=== PATIENT | male | born 1960 | race Caucasian/White ===

== ENCOUNTER 2020-02-04 07:48 | Day surgery (SDC) | payer BC ==
[2020-02-04 09:19] LABS: BASO % 0.6 % (0-2.0); EOS % 3.5 % (0-4.5); HEMATOCRIT 37.8 % (35.4-49); HEMOGLOBIN 12.3 GM/dL (11.7-16.9); LYMPH % 19.1 % (8-40); MCH 27.5 pg (25.7-33.7); MCHC 32.7 g/dl (32.0-35.9); MEAN PLT VOLUME 7.2 fl (7.5-11.1); MONO % 5.3 % (3.8-10.2); NEUT % 71.5 % (42.8-82.8); PLATELET COUNT 312 K/MM3 (134-434); RDW 17.3 % (11.9-15.9); WHITE BLOOD COUNT 11.6 K/mm3 (4.0-10.0)
[2020-02-04 09:55] LABS: POTASSIUM 4.4 mmol/L (3.5-5.1)
[2020-02-04 09:58] LABS: ALBUMIN 2.7 g/dl (3.4-5.0); BLOOD UREA NITROGEN 18.6 mg/dL (7-18)
[2020-02-04 10:02] LABS: BILIRUBIN,TOTAL 0.4 mg/dL (0.2-1); CREATININE 0.7 mg/dL (0.55-1.3)
[2020-02-04 10:03] LABS: TOT PROT 7.4 g/dl (6.4-8.2)
[2020-02-04] MEDS ORDERED: ACETAMINOPHEN 500 MG TABLET (FP) PO ONE (10:30)
[2020-02-04] MEDS ORDERED: diphenhydrAMINE HCL 25 MG CAPSULE (FP) PO ONE (10:30)
[2020-02-04] MEDS ORDERED: methylPREDNISolone NA SUCC 125 MG/2 ML VIAL IVPUSH ONE (10:30)
[2020-02-04] MEDS ORDERED: RITUXIMAB-ABBS 1,000 MG in DEXTROSE 5%-WATER - 400 ML IVPB ONE (11:00)
[2020-02-04 17:10] VITALS: BP 121/76; PULSE 71
[2020-02-04 17:11] VITALS: TEMP 97.8
== END 2020-02-04 15:35 | disposition home or self-care (01) ==
LOC: JCHEMO 07:48
PROVIDERS: ATTEND Internal Medicine Rheumatology
DX: M05.79 Rheumatoid arthritis with rheumatoid factor of multiple sites without organ or systems involvement (principal)
CPT/HCPCS: 36415; 80053; 85025; 96365; 96367; 96375; 96413; 96415; Q5115

== ENCOUNTER 2020-02-18 07:48 | Day surgery (SDC) | payer BC ==
[2020-02-18] MEDS ORDERED: ACETAMINOPHEN 500 MG TABLET (FP) PO ONE (08:45)
[2020-02-18] MEDS ORDERED: RITUXIMAB-ABBS 1,000 MG in DEXTROSE 5%-WATER - 400 ML IVPB ONE (08:45)
[2020-02-18] MEDS ORDERED: methylPREDNISolone NA SUCC 125 MG/2 ML VIAL IVPUSH ONE (08:45)
[2020-02-18] MEDS ORDERED: diphenhydrAMINE HCL 25 MG CAPSULE (FP) PO ONE (08:45)
[2020-02-18 08:52] LABS: BASO % 0.4 % (0-2.0); EOS % 1.6 % (0-4.5); HEMATOCRIT 31.8 % (35.4-49); HEMOGLOBIN 10.1 GM/dL (11.7-16.9); LYMPH % 6.5 % (8-40); MCH 26.3 pg (25.7-33.7); MCHC 31.9 g/dl (32.0-35.9); MEAN CELL VOLUME 82.6 fl (80-96); MEAN PLT VOLUME 6.3 fl (7.5-11.1); MONO % 6.1 % (3.8-10.2); NEUT % 85.4 % (42.8-82.8); PLATELET COUNT 264 K/MM3 (134-434); RBC 3.85 M/mm3 (4.00-5.60); RDW 16.5 % (11.9-15.9)
[2020-02-18 09:17] LABS: POTASSIUM 4.1 mmol/L (3.5-5.1)
[2020-02-18 09:20] LABS: ALBUMIN 2.8 g/dl (3.4-5.0); CALCIUM 8.6 mg/dL (8.5-10.1)
[2020-02-18 09:23] LABS: CREATININE 0.8 mg/dL (0.55-1.3)
[2020-02-18 09:25] LABS: BILIRUBIN,TOTAL 0.3 mg/dL (0.2-1); TOT PROT 7.1 g/dl (6.4-8.2)
[2020-02-18 16:31] VITALS: TEMP 97.7
[2020-02-19 06:34] VITALS: BP 130/75; PULSE 72
== END 2020-02-18 16:15 | disposition home or self-care (01) ==
LOC: JCHEMO 07:48
PROVIDERS: ATTEND Internal Medicine Rheumatology
DX: M05.79 Rheumatoid arthritis with rheumatoid factor of multiple sites without organ or systems involvement (principal)
CPT/HCPCS: 36415; 80053; 85025; 96367; 96413; 96415; Q5115

== ENCOUNTER 2022-01-30 08:39 | Day surgery (SDC) | payer BC, OTHER ==
[2022-01-30] MEDS ORDERED: METHYLPREDNISOLONE NA SUCC 100 MG in SODIUM CHLORIDE 50 ML IVPB ONE (09:00)
[2022-01-30] MEDS ORDERED: ACETAMINOPHEN 500 MG TABLET (FP) PO ONE (09:00)
[2022-01-30] MEDS ORDERED: diphenhydrAMINE HCL 25 MG CAPSULE (FP) PO ONE (09:00)
[2022-01-30] MEDS ORDERED: RITUXIMAB-ABBS 1,000 MG in DEXTROSE 5%-WATER - 400 ML IVPB ONE (09:30)
[2022-01-30 16:08] VITALS: RESP 18
[2022-01-30 16:15] VITALS: BP 132/74; PULSE 66
[2022-01-30 16:16] VITALS: TEMP 97.7
== END 2022-01-30 16:18 | disposition home or self-care (01) ==
LOC: JCHEMO 08:39 → J7W 08:41 → JCHEMO 16:18
PROVIDERS: ATTEND Internal Medicine Rheumatology
DX: M06.9 Rheumatoid arthritis, unspecified (principal)
CPT/HCPCS: 96375; 96413; 96415; Q5115

== ENCOUNTER 2022-02-13 09:13 | Day surgery (SDC) | payer BC, OTHER ==
[2022-02-13] MEDS ORDERED: METHYLPREDNISOLONE NA SUCC 100 MG in SODIUM CHLORIDE 50 ML IVPB ONE (09:30)
[2022-02-13] MEDS ORDERED: ACETAMINOPHEN 500 MG TABLET (FP) PO ONE (09:30)
[2022-02-13] MEDS ORDERED: diphenhydrAMINE HCL 25 MG CAPSULE (FP) PO ONE (09:30)
[2022-02-13] MEDS ORDERED: RITUXIMAB-ABBS 1,000 MG in DEXTROSE 5%-WATER - 400 ML IVPB ONE (10:00)
[2022-02-13 17:05] VITALS: BP 112/69; PULSE 82; RESP 20; TEMP 98.4
== END 2022-02-13 15:45 | disposition home or self-care (01) ==
LOC: JCHEMO 09:13 → J7W 09:14 → JCHEMO 15:45
PROVIDERS: ATTEND Internal Medicine Rheumatology
DX: M05.9 Rheumatoid arthritis with rheumatoid factor, unspecified (principal)
CPT/HCPCS: 96367; 96413; 96415; Q5115

== ENCOUNTER 2022-08-14 08:36 | Day surgery (SDC) | payer BC, OTHER ==
[2022-08-14] MEDS ORDERED: METHYLPREDNISOLONE NA SUCC 100 MG in SODIUM CHLORIDE 50 ML IVPB ONE (08:45)
[2022-08-14] MEDS ORDERED: diphenhydrAMINE HCL 25 MG CAPSULE (FP) PO ONE (08:45)
[2022-08-14] MEDS ORDERED: ACETAMINOPHEN 500 MG TABLET (FP) PO ONE (08:45)
[2022-08-14] MEDS ORDERED: RITUXIMAB-ABBS 1,000 MG in DEXTROSE 5%-WATER - 400 ML IVPB ONE (09:15)
[2022-08-14 15:43] VITALS: RESP 20
[2022-08-14 15:44] VITALS: BP 113/67; PULSE 62; TEMP 98.1
== END 2022-08-14 14:40 | disposition home or self-care (01) ==
LOC: J7W 08:36 → JCHEMO 08:36
PROVIDERS: ATTEND Internal Medicine Rheumatology
PROC: 3E033GC Introduction of Other Therapeutic Substance into Peripheral Vein, Percutaneous Approach (ICD-10-PCS; principal; 2022-08-14)
DX: M06.9 Rheumatoid arthritis, unspecified (principal)
CPT/HCPCS: 96360; 96375; 96413; Q5115

== ENCOUNTER 2022-08-30 08:30 | Day surgery (SDC) | payer BC, OTHER ==
[2022-08-30] MEDS ORDERED: ACETAMINOPHEN 500 MG TABLET (FP) PO ONE (09:00)
[2022-08-30] MEDS ORDERED: diphenhydrAMINE HCL 25 MG CAPSULE (FP) PO ONE (09:00)
[2022-08-30] MEDS ORDERED: METHYLPREDNISOLONE NA SUCC 100 MG in SODIUM CHLORIDE 50 ML IVPB ONE (09:00)
[2022-08-30] MEDS ORDERED: RITUXIMAB-ABBS 1,000 MG in DEXTROSE 5%-WATER - 400 ML IVPB ONE (09:30)
[2022-08-30 16:19] VITALS: BP 134/82; PULSE 67; RESP 20; TEMP 98
== END 2022-08-30 15:30 | disposition home or self-care (01) ==
LOC: JCHEMO 08:30 → J7W 08:32 → JCHEMO 15:30
PROVIDERS: ATTEND Internal Medicine Rheumatology
DX: M06.9 Rheumatoid arthritis, unspecified (principal)
CPT/HCPCS: 96375; 96413; 96415; Q5115

== ENCOUNTER 2023-02-12 08:32 | Day surgery (SDC) | payer BC, OTHER ==
[2023-02-12] MEDS ORDERED: METHYLPREDNISOLONE NA SUCC 100 MG in SODIUM CHLORIDE 50 ML IVPB ONE (09:00)
[2023-02-12] MEDS ORDERED: ACETAMINOPHEN 500 MG TABLET (FP) PO ONE (09:00)
[2023-02-12] MEDS ORDERED: diphenhydrAMINE HCL 25 MG CAPSULE (FP) PO ONE (09:00)
[2023-02-12] MEDS ORDERED: RITUXIMAB-ABBS 1,000 MG in DEXTROSE 5%-WATER - 400 ML IVPB ONE (09:30)
[2023-02-12 17:01] VITALS: RESP 18
[2023-02-12 17:07] VITALS: BP 126/77; PULSE 63; TEMP 97.9
== END 2023-02-12 15:15 | disposition home or self-care (01) ==
LOC: JCHEMO 08:32 → J7W 08:34 → JCHEMO 15:15
PROVIDERS: ATTEND Internal Medicine Rheumatology
DX: M06.9 Rheumatoid arthritis, unspecified (principal)
CPT/HCPCS: 96367; 96413; 96415; Q5115

== ENCOUNTER 2023-02-26 08:34 | Day surgery (SDC) | payer BC, OTHER ==
[2023-02-26] MEDS ORDERED: ACETAMINOPHEN 500 MG TABLET (FP) PO ONE (10:00)
[2023-02-26] MEDS ORDERED: diphenhydrAMINE HCL 25 MG CAPSULE (FP) PO ONE (10:00)
[2023-02-26] MEDS ORDERED: METHYLPREDNISOLONE NA SUCC 100 MG in SODIUM CHLORIDE 50 ML IVPB ONE (10:00)
[2023-02-26] MEDS ORDERED: RITUXIMAB-ABBS 1,000 MG in DEXTROSE 5%-WATER - 400 ML IVPB ONE (10:30)
[2023-02-26 16:37] VITALS: BP 127/77; PULSE 66; RESP 20; TEMP 97.7
== END 2023-02-26 15:45 | disposition home or self-care (01) ==
LOC: JCHEMO 08:34 → J7W 08:36 → JCHEMO 15:45
PROVIDERS: ATTEND Internal Medicine Rheumatology
DX: M05.9 Rheumatoid arthritis with rheumatoid factor, unspecified (principal)
CPT/HCPCS: 96367; 96413; 96415; Q5115

== ENCOUNTER 2023-09-04 08:47 | Day surgery (SDC) | payer OTHER, MEDICARE ==
[2023-09-04] MEDS: diphenhydrAMINE HCL 25 MG CAPSULE (FP) PO ONE (10:23)
[2023-09-04] MEDS: ACETAMINOPHEN 500 MG TABLET (FP) PO ONE (10:23)
[2023-09-04] MEDS: METHYLPREDNISOLONE NA SUCC 100 MG in SODIUM CHLORIDE 50 ML IVPB ONE (10:26)
[2023-09-04 14:51] VITALS: RESP 20; TEMP 98.4
[2023-09-04 15:10] VITALS: BP 124/74; PULSE 58
== END 2023-09-04 15:11 | disposition home or self-care (01) ==
LOC: JCHEMO 08:47 → J7W 08:49 → JCHEMO 15:11
PROVIDERS: ATTEND Internal Medicine Rheumatology
PROC: 3E03305 Introduction of Other Antineoplastic into Peripheral Vein, Percutaneous Approach (ICD-10-PCS; principal; 2023-09-04)
PROC: 3E033NZ Introduction of Analgesics, Hypnotics, Sedatives into Peripheral Vein, Percutaneous Approach (ICD-10-PCS; 2023-09-04)
DX: Z51.11 Encounter for antineoplastic chemotherapy (principal); M06.9 Rheumatoid arthritis, unspecified
CPT/HCPCS: 96375; 96413; 96415; Q5115

== ENCOUNTER 2023-09-18 08:32 | Day surgery (SDC) | payer OTHER, MEDICARE ==
[2023-09-18] MEDS: ACETAMINOPHEN 500 MG TABLET (FP) PO ONE (10:06)
[2023-09-18] MEDS: diphenhydrAMINE HCL 25 MG CAPSULE (FP) PO ONE (10:08)
[2023-09-18] MEDS: METHYLPREDNISOLONE NA SUCC 100 MG in SODIUM CHLORIDE 50 ML IVPB ONE (10:08)
[2023-09-18 18:28] VITALS: BP 145/81; PULSE 61; RESP 18; TEMP 98
== END 2023-09-18 15:00 | disposition home or self-care (01) ==
LOC: JCHEMO 08:32 → J7W 08:39 → JCHEMO 15:00
PROVIDERS: ATTEND Internal Medicine Rheumatology
DX: M06.9 Rheumatoid arthritis, unspecified (principal)
CPT/HCPCS: 96367; 96413; 96415; Q5115

== ENCOUNTER 2024-04-02 10:02 | Day surgery (SDC) | payer OTHER, MEDICARE ==
[2024-04-02] MEDS: METHYLPREDNISOLONE NA SUCC 100 MG in SODIUM CHLORIDE 50 ML IVPB ONE (10:41)
[2024-04-02] MEDS: ACETAMINOPHEN 500 MG TABLET (FP) PO ONE (10:42)
[2024-04-02] MEDS: diphenhydrAMINE HCL 25 MG CAPSULE (FP) PO ONE (10:42)
[2024-04-02] MEDS: RITUXIMAB 1,000 MG in DEXTROSE 5%-WATER - 400 ML IVPB ONE (11:30)
[2024-04-02 16:16] VITALS: BP 127/75; PULSE 72; RESP 20; TEMP 98.3
== END 2024-04-02 16:30 | disposition home or self-care (01) ==
LOC: JONCCHEMO 10:02 → J7W 10:04 → JONCCHEMO 16:30
PROVIDERS: ATTEND Internal Medicine Rheumatology
DX: M06.9 Rheumatoid arthritis, unspecified (principal)
CPT/HCPCS: 96367; 96413; 96415; J9312

== ENCOUNTER 2024-04-20 09:38 | Day surgery (SDC) | payer OTHER, MEDICARE ==
[2024-04-20] MEDS: diphenhydrAMINE HCL 25 MG CAPSULE (FP) PO ONE (10:26)
[2024-04-20] MEDS: METHYLPREDNISOLONE NA SUCC 100 MG in SODIUM CHLORIDE 50 ML IVPB ONE (10:27)
[2024-04-20] MEDS: ACETAMINOPHEN 500 MG TABLET (FP) PO ONE (10:27)
[2024-04-20] MEDS: RITUXIMAB 1,000 MG in DEXTROSE 5%-WATER - 400 ML IVPB ONE (11:19)
[2024-04-20 16:14] VITALS: BP 114/68; PULSE 66; RESP 16; TEMP 97.7
== END 2024-04-20 15:30 | disposition home or self-care (01) ==
LOC: J7W 09:38 → JCHEMO 09:38
PROVIDERS: ATTEND Internal Medicine Rheumatology
PROC: 3E03305 Introduction of Other Antineoplastic into Peripheral Vein, Percutaneous Approach (ICD-10-PCS; principal; 2024-04-20)
PROC: 3E0333Z Introduction of Anti-inflammatory into Peripheral Vein, Percutaneous Approach (ICD-10-PCS; 2024-04-20)
DX: M06.9 Rheumatoid arthritis, unspecified (principal)
CPT/HCPCS: 96375; 96413; 96415; J9312